=== PATIENT | male | born 1955 | race Caucasian/White ===

== ENCOUNTER 2017-03-27 11:47 | Day surgery (SDC) | payer OTHER ==
[~2017-03-27] VITALS: Ht 170.2 cm; Wt 65.8 kg
--- NOTE | 2017-03-27 07:46 | PCM.HPANE ---
Patient Data Surgeon Admitting Provider: Attending Provider:Kris Watson MD Primary Care Physician:Nayeli Rodriguez MD Other Provider:Nayeli Agostoingham Anesthesia Reason for Visit Colon Screening Ht/WT & BMI Body Mass Index Allergies Coded Allergies: No Known Allergies (Verified Allergy, Unknown, 03/25/17) Past Anesthesia History Anesthesia History: Denies:: Abnormal Airway, Anesthesia Reactions, Difficult Intubation, Fam Anesthesia Reaction, Fam Malignant Hypertherm, Malignant Hyperthermia Medications Reported Medications Carvedilol (Coreg)6.25 Mg Tablet6.25 Mg PO BID Ref 0 03/25/17 Lisinopril 5 Mg Tablet5 Mg PO DAILY #30 TABLET Ref 0 03/25/17 Aspirin 81 Mg [id number] Mg PO DAILY Ref 0 03/25/17 Ezetimibe/Simvastatin 10-80 mg (Vytorin 10-80 mg)1 Each Tablet1 Tablet PO DAILY 03/25/17 Nitroglycerin-Expunged Drug, Do Not Renew! (Nitroglycerin SL-Expunged Drug, Do Not Renew!)0.4 Mg Tab.subl0.4 Mg SL PRN 11/24/09 Discontinued Reported Medications Carvedilol 3.125 Mg Tablet3.125 Mg PO BID Ref 0 03/25/17 Lisinopril-Expunged Drug, Do Not Renew! 2.5 Mg Tablet2.5 Mg PO DAILY 11/24/09 Carvedilol-Expunged Drug, Do Not Renew! 3.125 Mg Tablet3.125 Mg PO BID 11/24/09 Simvastatin-Expunged Drug, Choose New Med! 40 Mg [id number] Mg PO HS 11/24/09 Clopidogrel-Expunged Drug, Do Not Renew! (Plavix-Expunged Drug, Do Not Renew!) 75 Mg [id number] Mg PO DAILY 11/24/09 Aspirin-Expunged Drug, Do Not Renew! 325 Mg [id number] Mg PO DAILY 11/24/09 History History of ENT Problems?: No HEENT History: Denies:: Abnormal Airway Cataracts Difficult Intubation Dysphagia Glaucoma Hearing Problem Sinus Problem TMJ Denture Type: None Teeth Condition: Within Normal Limits Hx of Heart Problems?: No Cardiovascular History: Denies:: AICD Abdominal Aortic Aneurism Atrial Fibrillation Cardiac Surgery Chest Pain Congestive Heart Failure Coronary Artery Disease Edema Heart Murmur Hypertension Irregular Heartbeat Pacemaker Peripheral Vascular Rheumatic Fever Thrombophlebitis Valvular Heart Disease Hx of Respiratory Problem?: No Respiratory History: Denies:: Asthma COPD Chest Surgery Cough Dyspnea Emphysema Hemoptysis Oxygen Administration Pneumonia Pulmonary Embolism Tuberculosis Use of C-PAP Machine Use of Inhalers / NEBS Hx Neurologic Problems?: No Hx of GI Problems?: No Gastrointestinal History: Denies:: Cirrhosis Diverticulitis Gall Bladder Disease Gastroesphageal Reflux Gastrointestinal Bleeding Heartburn Hepatitis Hiatal Hernia Liver Disease Rectal Bleeding Hx of Problems?: No Genitourinary History: Denies:: HX of Hemodialysis Kidney Stones Urinary Tract Infection Male Hx: Denies:: Prostate Problems Scrotal Mass Testicular Surgery Hx Musculoskeletal Problems?: Yes Musculoskeletal History: Positive for:: Back Injury ((L) shoulder) Denies:: Degenerative Joint Fibromyalgia Joint Replacement Musculoskeletal Trauma Myasthenia Gravis Osteoarthritis Rheumatoid Arthritis Systemic Lupus Hx of Psycho/Social Problems?: No Psycho Social History: Denies:: Anxiety Bipolar Disorder Hx Depression Suicide Attempt Hx Surgeries?: Yes Hx Any Other Health Problems?: No History Blood Transfusions: Denies:: Blood Transfuse Reaction Blood Transfusions Hx Alcohol Use: NoHx Substance Use: No Stop/Bang Risk Assessment Category Category 1A: Patient has history of documented sleep apnea, and HAS NOT received any narcotic, sedative or anesthesia administration during this stay. Category 1B: Patient has history of documented sleep apnea, and HAS received any narcotic , sedative or anesthesia administration during this stay Category 2: Patient has SUSPECTED Obstructive Sleep Apnea, and HAS received any narcotic , sedative or anesthesia administration during this stay. Category 3: Patient has SUSPECTED Obstructive Sleep Apnea and HAS NOT received narcotic, sedative or anesthesia administration during this stay. Category 4: Outpatient in Procedural Areas with known sleep apnea or who screen positive for High Risk via the STOP/BANG questionnaire. Exam Exam General Appearance: Alert, Oriented X3, Cooperative HEENT/AIRWAY: MP 1 Lungs: Clear to Auscultation Heart: Exam Unremarkable Plan Impression Patient chart reviewed, patient interviewed and anesthestic plan with risks, benefits, and alternatives discussed, and informed consent obtained. ASA Physical Status: ASA2 Mod Systemic Disease Anesthetic Plan: MAC Bene/Risks/Altern/Consents: Yes HP Complete Prior to Induction: Yes Evan Shaw MD Mar 27, 2017 07:46
[~2017-03-27 11:47] MED LIST: ASPI-973 PO; CARV6.25 PO; EZET1TAB16 PO; LISI-571 PO; Lactated Ringer's 1,000 ML IV ONE; NITR0.4T SL
[2017-03-27] MEDS ORDERED: fentaNYL-PF 50 mCg/mL 2 mL Inj ONE (11:48)
[2017-03-27] MEDS ORDERED: EPHEDrine/NS 5 mg/mL 5 mL Syringe ONE (11:48)
[2017-03-27] MEDS ORDERED: Propofol 10,000 mCg/mL 20 mL Inj ONE (11:48)
[2017-03-27 12:23] VITALS: BP 103/62; PULSE 74; RESP 14; O2SAT 98
[2017-03-27] MEDS ORDERED: Lactated Ringer's 1,000 ML IV SCH (13:12)
[2017-03-27] MEDS ORDERED: Ondansetron 2 mg/mL 2 mL Inj IVPUSH PRN (13:15)
[2017-03-27] MEDS ORDERED: MetoCLOpramide 5 mg/mL 2 mL Inj IVPUSH PRN (13:15)
[2017-03-27 13:41] VITALS: BP 77/43; PULSE 70; RESP 14; O2SAT 97
--- NOTE | 2017-03-27 13:42 | PCM.ENDCOL ---
Colonoscopy Date of Service: Mar 27, 2017 Physician Kris Watson MD Pre Procedure Diagnosis: Screening Post Procedure Dx & Findings: Polyp hemorrhoids diverticulosis Procedure Colonoscopy PROCEDURE IN DETAIL: Anesthesiology sedation Prep adequate Withdrawal time 16 minutes After unremarkable rectal examination the Olympus video colonoscope was inserted patient's anal canal and was advanced to cecum. Landmarks were identified including the ileocecal valve and appendiceal orifice. Scope was withdrawn systematically. Visualized colonic mucosa showed healthy shiny mucosa with normal healthy-appearing vasculature. In the ascending colon there were total of 3 polyps. 2 of the polyps are 1 mm. They were both removed completely with cold forceps. The third polyp was about 3 mm in size which was removed completely using cold snare. In the transverse colon there was a 3 mm polyp which was also removed completely using cold snare. From the proximal transverse colon into the distal sigmoid colon, several diverticuli noted. Medium size. In the rectum retroflexion was done which showed hemorrhoids. Anal canal was inspected carefully on the way out and hemorrhoids noted. Impression Polyps 4 status post complete removal Diverticuli Hemorrhoids Recommendation Repeat colonoscopy 3 years Diverticular diet Presedation Assessment Risks and Benefits Informed consent was obtained from the patient after all risks and benefits including but not limited to drug reaction, infection, pain, bleeding, perforation, as well as alternatives were discussed. Patient monitoring Continuous pulse oximetry, cardiac monitoring, blood pressure monitoring, IV access, and oxygen at 2L per nasal cannula. Complications There were no periprocedural complications identified. Post Procedure Plan Post Procedure Recommendations 1. Restrict activities today. 2. Resume normal activities in the morning. 3. Resume medications. 4. Patient informed of normal post procedure side effects as bloating, drowsiness, blood streaking in the stool. 5. average risk CRCS. If colon polyps come back as: -Hyperplastic- can repeat colonoscopy in 10 years -Tubular adenoma- repeat colonoscopy in 5 years -Tubulovillous/villous adenoma- repeat colonoscopy in 3 years -If any dysplasia- return to clinic as soon as possible 6. Please don't hesitate to call me with any questions. Kris Watson MD Mar 27, 2017 13:42
[2017-03-27 13:45] VITALS: BP 85/50; PULSE 78; RESP 16; O2SAT 96
[2017-03-27 13:50] VITALS: BP 82/49; PULSE 76; RESP 14; O2SAT 96
[2017-03-27 13:58] VITALS: BP 93/57; PULSE 75; RESP 16; O2SAT 96
[2017-03-27 14:04] VITALS: BP 103/57; PULSE 74; RESP 14; O2SAT 98
--- NOTE | 2017-03-27 14:08 | PCM.ANEP1 ---
Post Anesthesia PACU Phase 1 Assessment Vital Signs Vital Signs Date Time Temp Pulse Resp B/P Pulse Ox O2 Delivery O2 Flow Rate FiO2 03/27/17 14:04 74 14 103/57 98 Room Air 03/27/17 13:58 75 16 93/57 96 Room Air 03/27/17 13:50 76 14 82/49 96 Room Air 03/27/17 13:45 78 16 85/50 96 Room Air 03/27/17 13:41 70 14 77/43 97 Room Air 03/27/17 12:23 36.5 74 14 103/62 98 Room Air Anesthetic Administered: MAC Level of Alertness: Awake, talking WARE's with Equal Strength: Yes Pain: No Nausea or Vomiting: No CV Function & Hydration Stable: Yes Airway Device: Oxygen Delivery: Room Air Lungs: Normal Air Movement PACU Phase 2 Assessment Complications: No Follow up Care: No Patient Instructions Provided: N/A Evan Shaw MD Mar 27, 2017 14:08
--- NOTE | 2017-04-01 11:40 | PATH ---
SURGICAL PATHOLOGY Attending Physician:Kris Watson M.D. CASE STATUS: Signed Out PATIENT NAME: MICHAEL DOUGLASS PID: [id number] : 1955 DATE COLLECTED:03/27/2017 00:00 SPECIMEN: 1: Colon, Polyp 2: Colon, Polyp CLINICAL HISTORY: 1). ASCENDING POLYPS X3 2). TRANSVERSE POLYP X1 FINAL DIAGNOSIS: 1. Ascending Colon Polyps x3, Biopsies: Tubular adenoma x3. 2. Transverse Colon Polyp, Biopsy: Tubular adenoma. ICD10: D12.6 GROSS DESCRIPTION: The specimens are received in formalin, labeled with the patient's name, and sublabeled as the following: (1) ascen.; (2) trans. (1) The specimen consists of multiple fragments of mendoza glistening semitranslucent tissue (1.2 x 0.3 x 0.3 cm in aggregate). Section code: (1A) tissue. Specimen entirely submitted. (2) The specimen consists of multiple fragments of ramos-white glistening translucent tissue (0.5 x 0.3 x 0.1 cm in aggregate). Section code: (2A) tissue. Specimen entirely submitted. 03/29/17 ICD-9 CODES: CPT CODES: 1: 69702 2: 70563 Electronically Signed Out Richar Caputo MD, Ph.D. [facility] Pathology [facility] [address], [place] [address] Technical component performed at [facility], [facility] [address], [place], [address]
== END 2017-03-27 23:59 | disposition home or self-care (01) ==
LOC: END 11:47
PROVIDERS: ATTEND Internal Medicine
DX: Z12.11 Encounter for screening for malignant neoplasm of colon (principal); D12.2 Benign neoplasm of ascending colon; D12.3 Benign neoplasm of transverse colon; K57.30 Diverticulosis of large intestine without perforation or abscess without bleeding; K64.8 Other hemorrhoids; I10 Essential (primary) hypertension; F17.210 Nicotine dependence, cigarettes, uncomplicated; Z79.899 Other long term (current) drug therapy; Z79.82 Long term (current) use of aspirin
CPT/HCPCS: 45380; 45385; J2250; J2704; J3010; J7120